=== PATIENT | female | born 1995 | race Caucasian/White ===

== ENCOUNTER 2023-02-12 13:22 | Outpatient (CLI) | payer OTHER, SELFPAY | END 2023-02-12 13:23 | disposition home or self-care (01) | PROVIDERS: PCP Family Medicine; Visit Provider Family Medicine | DX: L65.9 Nonscarring hair loss, unspecified (principal); Z13.220 Encounter for screening for lipoid disorders | CPT/HCPCS: 80053; 83690; 84443; 87338 ==

== ENCOUNTER 2023-02-18 15:52 | Outpatient (CLI) | payer OTHER, SELFPAY ==
--- NOTE | 2023-02-18 16:00 | CRLHL7_ITS ---
For Patients: As a result of the Century Cures Act, medical imaging exams and procedure reports are released immediately into your electronic medical record. You may view this report before your referring provider. If you have questions, please contact your health care provider. INDICATION: Other fecal abnormalities COMPARISON: none TECHNIQUE: Real time ferguson scale imaging and color Doppler analysis was performed of the right upper quadrant. FINDINGS: The patient`s liver is of normal size and has uniform echogenicity. There is a normal appearance of the hepatic IVC and proximal abdominal aorta. There is no evidence of ascites. The gallbladder is of normal size and there is no evidence of intraluminal stones or sludge. The gallbladder wall measures 3 mm in thickness. The common bile duct is of normal size and measures 4 mm in diameter at the level of the tushar hepatis. The visualized pancreas appears normal. There is no evidence of a stone or hydronephrosis within the right kidney. The right kidney measures 10.6 cm in length. IMPRESSION: Normal right upper quadrant ultrasound. Dictated by Robert Abdul MD @ 02/19/2023 6:26:52 AM (Electronically Signed)
== END 2023-02-18 15:53 | disposition home or self-care (01) ==
LOC: US 15:53
PROVIDERS: PCP Family Medicine; Visit Provider Family Medicine
DX: R19.5 Other fecal abnormalities (principal); R10.9 Unspecified abdominal pain
CPT/HCPCS: 76705

== ENCOUNTER 2023-08-24 15:13 | Outpatient (CLI) | payer OTHER, SELFPAY | END 2023-08-24 15:14 | disposition home or self-care (01) | LOC: NFLDREF 09-03 12:45 | PROVIDERS: PCP Family Medicine; Referring Provider Family Medicine; Visit Provider Family Medicine | DX: Z79.899 Other long term (current) drug therapy (principal); E28.2 Polycystic ovarian syndrome; L65.9 Nonscarring hair loss, unspecified; L70.9 Acne, unspecified; Z11.3 Encounter for screening for infections with a predominantly sexual mode of transmission | CPT/HCPCS: 80048; 84443; 86592; 86703; 87491; 87591 ==

== ENCOUNTER 2023-10-28 17:05 | Outpatient (CLI) | payer OTHER, SELFPAY | END 2023-10-28 17:06 | disposition home or self-care (01) | PROVIDERS: PCP Family Medicine; Visit Provider Family Medicine | DX: Z11.3 Encounter for screening for infections with a predominantly sexual mode of transmission (principal) | CPT/HCPCS: 86592; 86703; 87491; 87591 ==

== ENCOUNTER 2024-01-07 11:54 | Outpatient (CLI) | payer OTHER, SELFPAY ==
[2024-01-08 00:22] LABS: Chlamydia DNA Amplified* NOT DETECTED (No Detected); GC DNA Amplified* NOT DETECTED (No Detected)
== END 2024-01-07 11:55 | disposition home or self-care (01) ==
PROVIDERS: PCP Family Medicine; Visit Provider Family Medicine
DX: N89.8 Other specified noninflammatory disorders of vagina (principal); Z11.3 Encounter for screening for infections with a predominantly sexual mode of transmission
CPT/HCPCS: 86592; 86703; 87491; 87591

== ENCOUNTER 2024-04-21 14:11 | Outpatient (CLI) | payer OTHER, SELFPAY | END 2024-04-21 14:12 | disposition home or self-care (01) | PROVIDERS: PCP Family Medicine; Visit Provider Family Medicine | DX: N89.8 Other specified noninflammatory disorders of vagina (principal); Z11.3 Encounter for screening for infections with a predominantly sexual mode of transmission | CPT/HCPCS: 86592; 86703 ==

== ENCOUNTER 2024-09-01 11:02 | Outpatient (CLI) | payer OTHER, SELFPAY ==
[2024-09-01 23:53] LABS: GC DNA Amplified* NOT DETECTED (No Detected)
[2024-09-01 23:55] LABS: Chlamydia DNA Amplified* DETECTED (No Detected)
== END 2024-09-01 11:03 | disposition home or self-care (01) ==
PROVIDERS: PCP Family Medicine; Visit Provider Family Medicine
DX: E28.2 Polycystic ovarian syndrome (principal); Z11.3 Encounter for screening for infections with a predominantly sexual mode of transmission; Z11.4 Encounter for screening for human immunodeficiency virus [HIV]; Z11.59 Encounter for screening for other viral diseases; Z13.6 Encounter for screening for cardiovascular disorders
CPT/HCPCS: 80053; 80061; 84443; 86592; 86703; 86803; 87491; 87591

== ENCOUNTER 2025-01-19 13:59 | Outpatient (CLI) | payer OTHER, SELFPAY ==
[2025-01-19 23:14] LABS: Chlamydia DNA Amplified* NOT DETECTED (No Detected); GC DNA Amplified* NOT DETECTED (No Detected)
== END 2025-01-19 14:00 | disposition home or self-care (01) ==
PROVIDERS: PCP Family Medicine; Visit Provider Family Medicine
DX: N89.8 Other specified noninflammatory disorders of vagina (principal); Z11.3 Encounter for screening for infections with a predominantly sexual mode of transmission; Z11.4 Encounter for screening for human immunodeficiency virus [HIV]; Z11.59 Encounter for screening for other viral diseases
CPT/HCPCS: 86592; 86703; 86803; 87491; 87591

== ENCOUNTER 2025-05-01 10:44 | Outpatient (CLI) | payer OTHER, SELFPAY ==
--- NOTE | 2025-05-01 14:42 | PC.SOCIAL ---
Spoke with pt. today who will lose her health care coverage at the end of this month due to loss of her job. Gave patient the information for [employer] and how to search for a [employer] Navigator near her.
[2025-05-01 23:28] LABS: Chlamydia DNA Amplified* NOT DETECTED (No Detected); GC DNA Amplified* NOT DETECTED (No Detected)
[2025-05-03 02:16] LABS: HPV Source Endocervical
[2025-05-07 15:55] LABS: Pap Test Digital Imaging Done
== END 2025-05-01 10:45 | disposition home or self-care (01) ==
PROVIDERS: PCP Family Medicine; Visit Provider Family Medicine
DX: E28.2 Polycystic ovarian syndrome (principal); Z12.4 Encounter for screening for malignant neoplasm of cervix; Z11.59 Encounter for screening for other viral diseases; N89.8 Other specified noninflammatory disorders of vagina
CPT/HCPCS: 80053; 80061; 86703; 86780; 86803; 87491; 87591; 87624; 87625; 88141; 88142; 88175